=== PATIENT | male | born 1945 | race Caucasian/White ===

== ENCOUNTER → 2020-11-11 12:39 | Outpatient (CLI) | payer OTHER, SELFPAY ==
[2020-11-11 14:09] LABS: Chloride 102 mmol/L (98-107); Potassium 3.5 mmoL/L (3.5-5.1); Sodium 139 mmol/L (136-145)
[2020-11-11 14:12] LABS: Alanine Aminotransferase 81 U/L (12-78); Albumin Level 4.3 g/dl (3.5-5.0); Albumin/Globulin Ratio 1.2 (1.1-1.8); Alkaline Phosphatase 126 U/L (38-126); Anion Gap 12.5 mEq/L (5-15); Aspartate Amino Transferase 89 U/L (17-59); Basophils % 0.2 % (0.1-2.0); Bilirubin,Total 3.3 mg/dl (0.2-1.3); Blood Urea Nitrogen 26 mg/dl (9-20); Carbon Dioxide 28 mmol/L (22.0-30.0); Eosinophils % 0.1 % (0.1-12.0); Estimated Glomerular Filt Rate 82 ml/min (>60); GFR (African American) 100 ML/MIN (>60); Globulin 3.7 g/dL (1.3-3.2); Hematocrit 43.6 % (42.0-52.0); Hemoglobin 14.8 g/dL (14.1-18.0); Lymphocytes # 1.2 K/mm3 (0.7-4.5); Lymphocytes % 16.2 % (10-50); Mean Corpuscular Hemoglobin 28.7 pg (27.0-31.2); Mean Corpuscular Volume 84.5 fl (80-94); Mean Platelet Volume 9.3 fl (7.4-10.4); Monocytes # 0.3 K/mm3 (0.1-1.0); Neutrophils # 5.7 K/mm3 (1.8-7.8); Neutrophils % 79.5 % (37.0-80.0); Platelet Count 122 K/mm3 (142-424); Red Blood Count 5.15 M/mm3 (4.60-6.20); Red Cell Distribution Width 14.2 % (11.5-17.5); White Blood Count 7.2 K/mm3 (4.8-10.8)
[2020-11-11 14:13] LABS: Calcium 9.4 mg/dl (8.4-10.2); Glucose 123 mg/dl (74-100)
[2020-11-12 10:03] LABS: Covid-19 Nasal PCR Sendout P&C POSITIVE
== END ==
PROVIDERS: PCP Nurse Practitioner Family; Visit Provider Nurse Practitioner Family
DX: Z20.822 Contact with and (suspected) exposure to COVID-19 (principal); U07.1 COVID-19; R11.2 Nausea with vomiting, unspecified
CPT/HCPCS: 36415; 80053; 85025; U0004

== ENCOUNTER 2020-11-12 12:42 | Outpatient (CLI) | payer OTHER, SELFPAY ==
[2020-11-12] VITALS (10 sets, daily range): BP systolic 88–128; BP diastolic 66–79; PULSE 68–81; RESP 16–18; TEMP 36.7–36.8; O2SAT 95–97
--- NOTE | 2020-11-12 13:32 | PC.NURSE ---
Checked pt vital signs prior to beginning infusion; pt VS BP 88/66, HR 80, RR 18, temp 98.2, SaO2 96% on RA contacted Dr. John r/t pt BP. Pt walking independently, no dizziness noted, pt denies presence of pain. Pt reports nausea only. Dr. John states okay to start pt infusion, continue to monitor VS, notify him of any issues.
--- NOTE | 2020-11-12 14:40 | PC.NURSE ---
Infusion complete at this time
== END 2020-11-12 13:45 | disposition home or self-care (01) ==
PROVIDERS: PCP Family Medicine; Visit Provider Family Medicine
DX: U07.1 COVID-19 (principal)
CPT/HCPCS: 96365

== ENCOUNTER 2023-04-23 09:12 | Emergency (ER) | payer OTHER, SELFPAY ==
[2023-04-23 09:12] VITALS: BP 124/82; PULSE 68; RESP 19; TEMP 36.7; O2SAT 96; BMI 31.8
[2023-04-23 09:38] LABS: Apearance,Urine Clear (Clear); Color,Urine Yellow (Yellow)
[2023-04-23 09:39] LABS: Bilirubin,Urine Negative (Negative); Blood, Urine 3+ (Negative); Glucose,Urine (UA) Negative (Negative); Ketones,Urine Negative (Negative); Protein,Urine 1+ (Negative); UTC Leukocyte Esterase,Urine 1+ (Negative); UTC Nitrate,Urine Negative (Negative); Urobilinogen,Urine 1 EU/dl (0.2)
--- NOTE | 2023-04-23 09:41 | EXP.UTC ---
Discharge Plan Disposition Patient Disposition: Home, Self-Care Condition: Good Prescriptions Prescriptions: New cefdinir 300 mg capsule 300 mg PO BID Qty: 20 0RF phenazopyridine [Pyridium] 200 mg tablet 200 mg PO Q8H 2 Days Qty: 6 0RF No Action losartan 50 mg tablet 50 mg PO DAILY Referrals Follow up/Referrals: Caitlin Ramon APRN [Primary Care Provider] - See instructions Activity Restrictions/Add. Instructions Additional Instructions/Restrictions: *Increase fluids. Water not Soda or Tea *Start antibiotic immediately and be sure to take as ordered for the FULL length of time although you should start to see improvement over the next 48 hours *Pyridium as needed Remember this medication will turn your urine . This is normal but it will stain what ever it gets on *You should not use Pyridium for more than 48 hours. If so , follow up with your primary physician to review urine culture and ensure that antibiotic is adequate for infection *Be SURE to follow up anytime for new or worsening symptoms with your family doctor. AND in 48 hours for urine culture results with your family doctor, if you do not have a doctor then you may call back to the [facility] for urine culture results and further treatment. We do recommend that you choose and establish care with a Primary Care Physician. ?AND follow up with them ?in 10-14 days to repeat UA to ensure infection is resolved and blood no longer present *Be sure to let your PCP know that we sent urine cultures from the [facility] so they can follow up to ensure that you area the on the correct antibiotic Call your doctor office and make appointment for 48 hours (2 days from today) ?to follow up and get the results of your urine culture and further treatment Clinical Impressions Clinical Impression: UTI (urinary tract infection) Qualifiers: Urinary tract infection type: site unspecified Hematuria presence: with hematuria Qualified Code(s): N39.0 - Urinary tract infection, site not specified Instructions Patient Instructions: Urinary Tract Infection, DI for Urinary Tract Infection (UTI), Cefdinir Discharge ED Provider: Elma Ma [facility] HPI General Stated complaint: Burning w/ urination Mode of Arrival: Ambulatory Source of Information: Patient Limitations: No Limitations Time Seen by Provider: 04/23/23 09:41 Description of Symptoms (Recalled from Triage Doc. by RN): Complaint of burning and frequency with urination x 2 days. HEENT Symptoms (Recalled from RN notes): No Resp Symptoms (Recalled from RN notes): No Skin Symptoms (Recalled from RN notes): No MS Symptoms (Recalled from RN notes): No Functional Status (Recalled from RN notes): wnl History of Present Illness Provider Complaint: Patient states that he thinks he may have a UTI States that he has been having burning with urination and urgency and frequency for the last couple of days and last night he was up and down all night going to the bathroom Denies fever, denies chills, denies back pain States he has a hx of Kidney stones about 40yrs ago but this does not feel like that Related Data Home Medications Medication Instructions Recorded Confirmed losartan 50 mg tablet 50 mg PO DAILY 03/03/21 03/03/21 Previous Rx's Medication Instructions Recorded cefdinir 300 mg capsule 300 mg PO BID #20 caps 04/23/23 phenazopyridine 200 mg tablet 200 mg PO Q8H pain 2 days #6 tabs 04/23/23 (Pyridium) Allergies Allergy/AdvReac Type Severity Reaction Status Date / Time No Known Allergies Allergy Verified 03/03/21 11:44 Worker's Comp Is this a Worker's Comp case?: No [facility] Disclaimer: The information contained in this section may have been updated after the patient was seen, as this information can be updated by other users. Social History Smoking Status: Former smoker alcohol intake: never substance use type: denies use current occupational status: employed Travel in the last 8 wee
[2023-04-23 10:07] VITALS: BP 124/82; PULSE 68; RESP 19; TEMP 36.7; O2SAT 96
== END 2023-04-23 10:10 | disposition home or self-care (01) ==
PROVIDERS: Emergency Provider Nurse Practitioner; PCP Nurse Practitioner Family
DX: N39.0 Urinary tract infection, site not specified (principal); R31.9 Hematuria, unspecified; Z87.442 Personal history of urinary calculi; Z87.891 Personal history of nicotine dependence
CPT/HCPCS: 81003; 87086; 96372; 99204; 99212; G0463; J0696

== ENCOUNTER 2024-01-19 15:03 | Emergency (ER) | payer OTHER, SELFPAY ==
[2024-01-19 15:04] VITALS: BP 112/67; PULSE 75; RESP 16; TEMP 36.7; O2SAT 97; BMI 32.9
[2024-01-19 15:30] VITALS: BP 119/71; PULSE 74; RESP 20; O2SAT 96
--- NOTE | 2024-01-19 15:36 | ECG_ITS ---
APPROVED REPORT Exam: Resting ECG HR:75 bpm ECG Measurements Heart Rate 75 AXES VA 253 P 66 QRSd 114 QRS -13 QT 432 T 58 QTc 460 Conclusion SINUS RHYTHM WITH FIRST DEGREE AV BLOCK MODERATE INTRAVENTRICULAR CONDUCTION DELAY [110+ ms QRS DURATION] NONSPECIFIC ST ELEVATION [0.05+ mV ST ELEVATION] ABNORMAL ECG Electronically signed by : RADHA FAULKNER, 01/19/2024 23:28:03
[2024-01-19 15:43] LABS: Chloride 109 mmol/L (98-107); Sodium 142 mmol/L (136-145)
[2024-01-19 15:46] LABS: Alanine Aminotransferase 37 U/L (12-78); Albumin Level 4.1 g/dl (3.5-5.0); Albumin/Globulin Ratio 1.4 (1.1-1.8); Alkaline Phosphatase 85 U/L (38-126); Aspartate Amino Transferase 54 U/L (17-59); Bilirubin,Total 4.2 mg/dl (0.2-1.3); Blood Urea Nitrogen 30 mg/dl (9-20); Carbon Dioxide 28 mmol/L (22.0-30.0); Creatinine Clearance Estimated 79 mL/min (50-200); Estimated Glomerular Filt Rate 54 ml/min (>60); GFR (African American) 65 ML/MIN (>60); Total Protein,Serum 7.1 g/dl (6.3-8.2)
[2024-01-19 15:47] LABS: Basophils # 0.1 K/mm3 (0-0.2); Basophils % 0.9 % (0.1-2.0); Calcium 9.2 mg/dl (8.4-10.2); Eosinophils # 0.2 K/mm3 (0.0-0.4); Eosinophils % 2.1 % (0.1-12.0); Glucose 109 mg/dl (74-100); Hematocrit 46.7 % (42.0-52.0); Hemoglobin 15.5 g/dL (14.1-18.0); Lymphocytes # 1.9 K/mm3 (0.7-4.5); Lymphocytes % 24.2 % (10-50); Mean Corpuscular HGB Conc 33.1 g/dL (31.8-35.4); Mean Corpuscular Hemoglobin 28.8 pg (27.0-31.2); Mean Corpuscular Volume 86.9 fl (80-94); Mean Platelet Volume 9.1 fl (7.4-10.4); Monocytes # 0.5 K/mm3 (0.1-1.0); Monocytes % 6.4 % (1.7-9.3); Neutrophils # 5.1 K/mm3 (1.8-7.8); Neutrophils % 66.4 % (37.0-80.0); Platelet Count 164 K/mm3 (142-424); Red Blood Count 5.37 M/mm3 (4.60-6.20); Red Cell Distribution Width 14.5 % (11.5-17.5); White Blood Count 7.7 K/mm3 (4.8-10.8)
--- NOTE | 2024-01-19 15:54 | ED_ITS ---
Discharge Plan Disposition Patient Disposition: Home, Self-Care Prescriptions Prescriptions: New potassium chloride 20 mEq tablet extended release 40 meq PO DAILY 2 Days Qty: 4 0RF ondansetron 4 mg tablet,disintegrating 4 mg PO Q8H PRN (Reason: nausea and vomiting) 4 Days Qty: 12 0RF Referrals Follow up/Referrals: Provider,Viviana, [Referring] - See instructions Reyes Freitas MD [Staff Physician] - See instructions Caitlin Ramon APRN [Primary Care Provider] - See instructions Activity Restrictions/Add. Instructions Additional Instructions/Restrictions: At this time it was felt you are safe to be discharged home. If new or worsening symptoms please do not hesitate to return the emergency department. Please take your medications as prescribed and follow-up with your family doctor within 3 days. Please call and schedule appoint with Dr. Freitas for your heart rhythm as you are able. Clinical Impressions Clinical Impression: Acute viral syndrome, Acute hypokalemia, Bigeminy Discharge ED Provider: Demar Bowser General Adult HPI General Chief complaint: Weakness Stated complaint: Vomiting and diarrhea Time Seen by Provider: 01/19/24 15:24 Mode of Arrival: Wheelchair Source of Information: Patient Limitations: No Limitations Description of Symptoms (Recalled from ER Triage Doc. 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 STates that he just feels off balance. History of Present Illness HPI narrative: Patient is a 78-year-old male with no chronic comorbidities who presents emergency department for evaluation of weakness. Patient had nonbloody vomiting and diarrhea since which has been relatively persistent, the vomiting has lessened throughout the course. 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 After the service and he felt globally weak and eased himself to the floor, no trauma. Due to this persistent weakness he presents here for continued evaluation. Related Data Previous Rx's Medication Instructions Recorded ondansetron 4 mg disintegrating 4 mg PO Q8H PRN nausea and 01/19/24 tablet vomiting 4 days #12 tabs potassium chloride 20 mEq 40 meq (2 x 20 mEq) PO DAILY low 01/19/24 tablet,extended release potassium 2 days #4 tabs Allergies Allergy/AdvReac Type Severity Reaction Status Date / Time No Known Allergies Allergy Verified 01/01/24 13:04 [facility] Disclaimer: The information contained in this section may have been updated after the patient was seen, as this information can be updated by other users. Medical History (Updated 01/19/24 @ 17:23 by Demar Bowser MD) Hypertension Surgical History (Updated 12/12/23 @ 10:09 by Flor Colon LPN) H/O hand surgery Family History (Updated 12/12/23 @ 10:09 by Flor Colon LPN) Mother Hypertension Social History Smoking Status: Former smoker alcohol intake: never substance use type: denies use current occupational status: employed Travel in the last 8 weeks: None ROS Obtained: Yes Systems reviewed as appropriate & no additional complaints except as documented Physical Exam General General appearance: alert and in no apparent distress Head Head exam: atraumatic and normocephalic Eye Eye exam: Present PERRL and EOMI ENT ENT exam: Present mucous membranes moist Neck Neck exam: Present normal inspection Chest Chest inspection: Present normal inspection and symmetric chest wall rise Respiratory Respiratory exam: Present normal lung sounds bilaterally; Absent respiratory distress Cardiovascular Cardiovascular exam: Present regular rate and normal rhythm Abdominal Exam Abdominal exam: Present soft; Absent tenderness Extremities Exam Extremities exam: Present normal inspection Neurological Exam Neurological exam: Present alert and CN II-XII intact; Absent motor sensory deficit Psychiatric Psychiatric exam: Present normal affect Skin Skin exam: Present warm and dry Medical Decision Making Miah Inquiry Pt receiving controlled substance: No Vital Signs: 01/19/24 15:04 01/19/24 15:30 01/19/24 16:00 Temperature 98.1 F Temperature Source Oral Pulse Rate 74 52 L Pulse Rate [Left Radial] 75 Respiratory Rate 16 20 Blood Pressure 119/71 128/70 Blood Pressure [Right Arm] 112/67 Blood Pressure Mean 84 Blood Pressure Mean [Right Arm] 82 Blood Pressure Source [Right Arm] Automatic Cuff Blood Pressure Position [Right Arm] Sitting 02 Sat by Pulse Oximetry 97 96 96 Oxygen Delivery Method Room Air Room Air 01/19/24 16:30 Temperature Temperature Source Pulse Rate Pulse Rate [Left Radial] Respiratory Rate 15 Blood Pressure 131/57 L Blood Pressure [Right Arm] Blood Pressure Mean Blood Pressure Mean [Right Arm] Blood Pressure Source [Right Arm] Blood Pressure Position [Right Arm] 02 Sat by Pulse Oximetry Oxygen Delivery Method Lab Data Lab Results 01/19/24 15:17: WBC 7.7, RBC 5.37, Hgb 15.5, Hct 46.7, MCV 86.9, MCH 28.8, MCHC 33.1, RDW 14.5, Plt Count 164, MPV 9.1, Neut % (Auto) 66.4, Lymph % (Auto) 24.2, [place] % (Auto) 6.4, Eos % (Auto) 2.1, Baso % (Auto) 0.9, Neut # (Auto) 5.1, Lymph # (Auto) 1.9, [place] # (Auto) 0.5, Eos # (Auto) 0.2, Baso # (Auto) 0.1, Sodium 142, Potassium 3.0 L, Chloride 109 H, Carbon Dioxide 28, Anion Gap 8.0, BUN 30 H , Creatinine 1.30 H, Estimated Creat Clear 79, Estimated GFR 54 L, Est GFR ( Amer) 65, Glucose 109 H, Calcium 9.2, Magnesium 2.4 H, Total Bilirubin 4.2 H, AST 54, ALT 37, Alkaline Phosphatase 85, Troponin I 0.01, Total Protein 7.1, Albumin 4.1, Globulin 3.0, Albumin/Globulin Ratio 1.4, Lipase 121 01/19/24 15:17 01/19/24 15:17 Orders (Tests/Meds): ED MEDICATIONS Generic Name Dose Route Start Last Admin Trade Name Freq PRN Reason Stop Dose Admin Sodium Chloride 10 ml 01/19/24 15:32 Sodium Chloride 0.9% 10ml Flush Syringe IV 02/18/24 15:31 NEEDED PRN Maintain IV Site Discontinued Medications Generic Name Dose Route Start Last Admin Trade Name Freq PRN Reason Stop Dose Admin Lactated Ringer's 1,000 mls @ 999 mls/hr 01/19/24 15:53 01/19/24 16:03 Lactated Ringer's 1000 Ml Bag IV 01/19/24 16:53 999 mls/hr .Q1H1M ONE Administration Ondansetron HCl 4 mg 01/19/24 15:53 01/19/24 16:06 Ondansetron 4mg/2ml Vial IV 01/19/24 15:54 4 mg ONCE ONE Administration Potassium Chloride 40 meq 01/19/24 15:53 01/19/24 16:06 Potassium Chloride 20meq Tab PO 01/19/24 15:54 40 meq ONCE ONE Administration ORDERS Category Date Time Status Complete Blood Count Auto Diff Stat Lab 01/19/24 15:17 Completed Comprehensive Metabolic Panel Stat Lab 01/19/24 15:17 Completed Lipase Stat Lab 01/19/24 15:17 Completed MG [Magnesium] Stat Lab 01/19/24 15:17 Completed Rapid PCR Covid and Flu A/B Stat Lab 01/19/24 15:46 Ordered Troponin I Q3H Lab 01/19/24 18:45 Ordered Troponin I Q3H Lab 01/19/24 21:45 Ordered Troponin I Stat Lab 01/19/24 15:17 Completed ECG Data Tracing #1: Independently interpreted by me, rate 75, rhythm is regular, no ST elevation in anatomical contiguous leads, QTc 460. Tracing #2: Independently interpreted by me, rate is 77, rhythm is irregularly irregular, bigeminy. No ST elevation in anatomical contiguous leads. QTc 450. HEART Score History (anamnesis): Slightly suspicious ECG: Normal Age: >65 years Risk factors: No known risk factors Troponin: </= normal limit HEART Score: 2 Medical Decision Narrative: In summary patient is a 78-year-old male with past medical history described above presents emergency department for evaluation of weakness. Patient is hemodynamically stable nontoxic-appearing upon arrival, afebrile. Differential diagnosis includes electrolyte abnormality, viral syndrome, pancreatitis, atypical ACS, among others. Workup will be conducted with hematologic labs, EKG, single troponin, viral swab. Initial interventions include crystalloid bolus and Zofran. Initial workup reviewed by me, hematologic labs remarkable for elevated creatinine without unknown baseline, hypokalemia in the setting of vomiting. Upon repeat evaluation patient had bigeminy on EKG. The case was discussed with Dr. Freitas who agrees that this is a stable rhythm and is of no current consequence. Initial troponin normal and patient has no chest pain. Potassium was repleted by mouth 40 mill equivalents and patient will be discharged with a prescription for potassium over the next 2 days as well as Zofran and will follow-up with his family doctor in 72 hours and we referred to Dr. Freitas on outpatient basis. Patient was given return precautions. Critical Care Critical Care Time Critical Care Time: No
[2024-01-19 15:58] LABS: Lipase 121 U/L (23-300)
[2024-01-19 15:59] LABS: Troponin I 0.01 ng/ml (0.00-0.034)
[2024-01-19 16:00] VITALS: BP 128/70; PULSE 52; O2SAT 96
[2024-01-19] MEDS: LACTATED RINGERS 1000ML 1,000 ML 999 ML IV (16:03)
[2024-01-19] MEDS: POTASSIUM CHLORIDE 20MEQ TAB 40 MEQ PO (16:06)
[2024-01-19] MEDS: ONDANSETRON 4MG/2ML VIAL 4 MG IV (16:06)
--- NOTE | 2024-01-19 16:10 | PC.NURSE ---
Addendum entered by Michael Dawn RN 01/19/24 16:11: aware. Original Note: pt refused covid/flu swab.
--- NOTE | 2024-01-19 16:22 | ECG_ITS ---
APPROVED REPORT Exam: Resting ECG HR:76 bpm ECG Measurements Heart Rate 76 AXES NH 264 P 72 QRSd 115 QRS 9 QT 419 T 36 QTc 450 Conclusion SINUS RHYTHM WITH FIRST DEGREE AV BLOCK WITH FREQUENT VENTRICULAR PREMATURE COMPLEXES IN A BIGEMINAL PATTERN MODERATE INTRAVENTRICULAR CONDUCTION DELAY [110+ ms QRS DURATION] NONSPECIFIC T-WAVE ABNORMALITY ABNORMAL ECG Electronically signed by : RADHA FAULKNER, 01/19/2024 23:27:50
--- NOTE | 2024-01-19 16:28 | PC.NURSE ---
PAged at this time.
--- NOTE | 2024-01-19 16:29 | PC.NURSE ---
Dr Bowser speaking to Dr Freitas
[2024-01-19 16:30] VITALS: BP 131/57; RESP 15
[2024-01-19 16:40] LABS: Magnesium 2.4 mg/dl (1.6-2.3)
[2024-01-19 17:00] VITALS: BP 131/76; PULSE 77; RESP 18; O2SAT 97
[2024-01-19 17:40] VITALS: BP 131/76; PULSE 91; RESP 18; TEMP 36.7; O2SAT 96
== END 2024-01-19 17:42 | disposition home or self-care (01) ==
PROVIDERS: Emergency Provider Emergency Medicine; PCP Nurse Practitioner Family
DX: E87.6 Hypokalemia (principal); R11.2 Nausea with vomiting, unspecified; R19.7 Diarrhea, unspecified; R53.1 Weakness; I44.0 Atrioventricular block, first degree; I49.8 Other specified cardiac arrhythmias; B34.9 Viral infection, unspecified; I10 Essential (primary) hypertension; Z87.891 Personal history of nicotine dependence
CPT/HCPCS: 80053; 83690; 83735; 84484; 85025; 93005; 96361; 96374; 99284; J2405

== ENCOUNTER 2024-01-20 11:40 | Outpatient (CLI) | payer OTHER, SELFPAY ==
--- NOTE | 2024-01-20 11:50 | CT_ITS ---
FINAL REPORT TECHNIQUE: Multiple axial CT sections were performed from the foramen magnum to the vertex. Coronal reformatted images were also obtained. Precontrast and postcontrast injection images were obtained. This study was performed with technique to keep radiation doses as low as reasonably achievable, (ALARA). Individualized dose reduction techniques using automated exposure control or adjustment of mA and/or kV according to the patient size were employed. 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 Mild chronic changes are present. The ventricles are normal in size. There is no evidence of hemorrhage. No masses are identified. No extra-axial fluid collection is seen. There is mucosal thickening in multiple sinuses. A small fluid level is seen in the left maxillary sinus consistent with sinusitis. No osseous abnormality is seen on the bone window images. Postcontrast images demonstrate no abnormal enhancement. IMPRESSION: Left frontal encephalomalacia. No acute intracranial abnormality. Sinusitis. Reviewed, Interpreted and Dictated by Cliff Lorenzo III, MD Transcribed by Aditi Zambrano Authenticated and . [facility]
[2024-01-20] MEDS: IOPAMIDOL-300 (61%) 100ML VIAL 100 ML IV (12:36)
== END 2024-01-20 23:59 ==
LOC: RAD 11:40
PROVIDERS: PCP Nurse Practitioner Family; Visit Provider Physician Assistant
DX: I69.361 Other paralytic syndrome following cerebral infarction affecting right dominant side (principal); R55 Syncope and collapse; R94.31 Abnormal electrocardiogram [ECG] [EKG]; I49.8 Other specified cardiac arrhythmias; E87.6 Hypokalemia
CPT/HCPCS: 70470; 93225; Q9967

== ENCOUNTER 2024-01-22 12:49 | Outpatient (CLI) | payer MEDICARE, SELFPAY ==
[2024-01-22 14:25] LABS: Chloride 107 mmol/L (98-107); Potassium 3.9 mmoL/L (3.5-5.1); Sodium 140 mmol/L (136-145)
[2024-01-22 14:27] LABS: Blood Urea Nitrogen 9 mg/dl (9-20); Estimated Glomerular Filt Rate 94 ml/min (>60); GFR (African American) 113 ML/MIN (>60)
[2024-01-22 14:28] LABS: Alanine Aminotransferase 57 U/L (12-78); Albumin Level 3.9 g/dl (3.5-5.0); Albumin/Globulin Ratio 1.4 (1.1-1.8); Alkaline Phosphatase 114 U/L (38-126); Anion Gap 9.9 mEq/L (5-15); Aspartate Amino Transferase 53 U/L (17-59); Bilirubin,Total 2.6 mg/dl (0.2-1.3); Calcium 9.1 mg/dl (8.4-10.2); Carbon Dioxide 27 mmol/L (22.0-30.0); Globulin 2.7 g/dL (1.3-3.2); Glucose 95 mg/dl (74-100); Total Protein,Serum 6.6 g/dl (6.3-8.2)
== END 2024-01-22 23:59 ==
LOC: LAB.DROPOF 12:50
PROVIDERS: PCP Nurse Practitioner Family; Visit Provider Nurse Practitioner Family
DX: E87.6 Hypokalemia (principal)
CPT/HCPCS: 80053

== ENCOUNTER 2024-01-22 13:28 | Outpatient (CLI) | payer MEDICARE, SELFPAY | END 2024-01-22 23:59 | LOC: RT 13:29 | PROVIDERS: PCP Nurse Practitioner Family; Visit Provider Physician Assistant | DX: R55 Syncope and collapse (principal); R94.31 Abnormal electrocardiogram [ECG] [EKG]; I69.361 Other paralytic syndrome following cerebral infarction affecting right dominant side | CPT/HCPCS: 80053; 93270 ==

== ENCOUNTER 2024-01-31 08:00 | Outpatient (CLI) | payer MEDICARE, SELFPAY ==
[2024-01-31 15:55] LABS: Alanine Aminotransferase 25 U/L (12-78); Albumin Level 4.2 g/dl (3.5-5.0); Albumin/Globulin Ratio 1.6 (1.1-1.8); Alkaline Phosphatase 94 U/L (38-126); Anion Gap 12.6 mEq/L (5-15); Aspartate Amino Transferase 35 U/L (17-59); Bilirubin,Total 2.5 mg/dl (0.2-1.3); Blood Urea Nitrogen 10 mg/dl (9-20); Calcium 9.2 mg/dl (8.4-10.2); Carbon Dioxide 28 mmol/L (22.0-30.0); Chloride 104 mmol/L (98-107); Chol/HDL Ratio 4.2 (1-3.5); Cholesterol 139 mg/dl (140-200); Estimated Glomerular Filt Rate 82 ml/min (>60); GFR (African American) 99 ML/MIN (>60); Globulin 2.7 g/dL (1.3-3.2); Glucose 86 mg/dl (74-100); HDL Cholesterol 33 mg/dl (40-60); Potassium 4.6 mmoL/L (3.5-5.1); Sodium 140 mmol/L (136-145); Total Protein,Serum 6.9 g/dl (6.3-8.2); Triglycerides 107 mg/dl (30-150); VLDL Cholesterol 21 mg/dL (0-40)
[2024-01-31 16:07] LABS: Direct LDL Cholesterol 75.95 mg/dL (100-129)
== END 2024-01-31 23:59 | disposition home or self-care (01) ==
LOC: LAB.DROPOF 02-02 08:01
PROVIDERS: PCP Nurse Practitioner Family; Visit Provider Nurse Practitioner Family
DX: E87.6 Hypokalemia (principal); E78.5 Hyperlipidemia, unspecified; Z79.899 Other long term (current) drug therapy
CPT/HCPCS: 80053; 80061

== ENCOUNTER 2024-02-20 11:07 | Outpatient (CLI) | payer MEDICARE, SELFPAY ==
--- NOTE | 2024-02-20 11:07 | NM_ITS ---
APPROVED REPORT Exam: Nuclear Stress Test Indication: HYPERLIPIDEMIA, FM HX Patient Location: Outpatient Stress Tech: Shena Constantino [place] Tech:ASHLEY Dillard RT(R)(N) Ht: 6 ft 2 in Wt: 250 lbs HR: 69 bpm BP: 154/73 mmHg BSA: 2.39 m2 Rhythm: NSR TID: 1.09 BMI: 32.0 History: HYPERLIPIDEMIA, FM HX Procedure: Patient received 0.4 mg of intravenous Lexiscan, resting heart rate 69 bpm, resting blood pressure 154/73 mmHg, with Lexiscan maximum heart rate achieved was 87 bpm which is % of the maximum predicted heart rate and blood pressure was 154/73 mmHg. With Lexiscan, patient denied any complaint of chest pain. Cardiac Stress and Resting SPECT Images: Cardiac Stress and Resting SPECT images were obtained using technetium 99m Myoview 32.1 mCi stress and 10.56 mCi at rest. Resting and stress imaging in supine and prone positions demonstrate a medium-sized, moderate, predominantly fixed perfusion defect in the basal to mid inferior LV wall. Gated imaging demonstrates severely reduced global LV systolic function. There is near akinesis of the basal inferior LV wall. LVEF is calculated at 24%. Of note, this LVEF may be inaccurate in the setting of frequent PVCs during stress testing. Conclusion: Medium-sized, moderate, predominantly fixed perfusion defect in the basal to mid inferior LV wall. Gated imaging demonstrates severely reduced global LV systolic function. There is near akinesis of the basal inferior LV wall. LVEF is calculated at 24%. Of note, this LVEF may be inaccurate in the setting of frequent PVCs during stress testing. Correlation of LVEF with new or recent TTE is recommended. Electronically signed by : Danelle Pathak MD 02/23/2024 19:46:03
[2024-02-20] MEDS: ISOTOPE MYOVIEW (PER STUDY) 1 DOSE IV (13:39)
[2024-02-20] MEDS: REGADENOSON 0.4MG/5ML SYRINGE 0.400000000000000022 MG IV (13:39)
[2024-02-20] MEDS: SODIUM CHLORIDE 0.9% 10ML SYR (RAD ONLY) 10 ML IV ×2 (13:39)
--- NOTE | 2024-02-20 14:14 | CA_ITS ---
APPROVED REPORT Exam: Pharmacologic Technologist: Shena Smallwood, Ht: 6 ft 2 in Wt: 250 lbs BSA: 2.39 m2 HR: 65 bpm BP: 154/73 mmHg Rhythm: NSR Indications: Syncope Medical History Medications: Aspirin,,,,, Metoprolol,,,,, Crestor,,,,, ONdansetron,,,,, Potassium,,,,, Stress Test Details Test: LEXISCAN Reason for pharmacologic stress test: physical limitation. HR Resting HR: 69 bpm Max Heart Rate (APMHR): 143 bpm Max HR Achieved: 87 bpm Target HR (85% APMHR): 122 bpm % of APMHR: 61 Recovery HR: 78 bpm BP Resting BP: 154/73 mmHg Max BP: 154/73 mmHg Recovery BP: 140.0/81.0 mmHg ECG Resting ECG: NSR, frequent PVCs Stress ECG: No significant ST changes Arrhythmia: Frequent PVCs Clinical Exercise duration: 04:01 min Highest Stage Achieved: Stress ECG Conclusion Symptoms: very brief SOA. No CP. Arrhythmias/Ectopy: Frequent PVCs, one ventricular couplet. ST-T Changes: No significant changes. Conclusion: Frequent PVCs present at baseline and after Lexiscan administration. No ST changes after Lexiscan stress. Myoview images reported separately. Test Summary REST 05:20 . . 69 . 154/ 73 . . Stage 1 01:00 . . 68 . . . . Stage 2 01:00 . . 79 . . . . Stage 3 01:00 . . 78 . 147/ 72 . . Stage 4 01:00 . . 76 . 151/ 77 . . Stage 4 01:01 . . 72 . 151/ 77 . Stop exercise at 04:01 RECOVERY 01:00 . . 77 . 145/ 83 . . RECOVERY 02:00 . . 76 . 145/ 83 . . RECOVERY 03:00 . . 70 . 143/ 78 . . RECOVERY 04:00 . . 74 . 143/ 78 . . RECOVERY 04:28 . . 75 . 140/ 81 . . Electronically signed by : Danelle Pathak MD 02/23/2024 19:42:54
== END 2024-02-20 23:59 | disposition home or self-care (01) ==
PROVIDERS: PCP Nurse Practitioner Family; Visit Provider Physician Assistant
DX: R55 Syncope and collapse (principal); I69.361 Other paralytic syndrome following cerebral infarction affecting right dominant side; I63.9 Cerebral infarction, unspecified; R94.31 Abnormal electrocardiogram [ECG] [EKG]; I49.8 Other specified cardiac arrhythmias; E87.6 Hypokalemia
CPT/HCPCS: 78452; 93017; 93018; A9502; J2785

== ENCOUNTER 2024-07-31 17:50 | Emergency (ER) | payer MEDICARE, SELFPAY ==
[2024-07-31 17:52] VITALS: BP 149/88; PULSE 76; RESP 20; TEMP 36.6; O2SAT 94; BMI 32.1
--- NOTE | 2024-07-31 18:29 | XR_ITS ---
PROCEDURE INFORMATION: Exam: XR Chest Exam date and time: 07/31/2024 7:13 PM Age: 79 years old Clinical indication: Wheezing; Additional info: Isolated R sided wheezes, productive cough TECHNIQUE: Imaging protocol: Radiologic exam of the chest. Views: 2 views. Total images: 2 COMPARISON: No relevant prior studies available. FINDINGS: Lungs: Unremarkable. No consolidation. No pulmonary vascular congestion or edema. Pleural spaces: Unremarkable. No pleural effusion. No pneumothorax. Heart/Mediastinum: Unremarkable. No cardiomegaly. No mediastinal widening or hilar enlargement. Vasculature: Tortuous and mildly atherosclerotic thoracic aorta. Bones/joints: Mild degenerative changes thoracic spine and bilateral AC joints. IMPRESSION: No radiographically acute cardiopulmonary process.
[2024-07-31] MEDS: IPRATROPIUM/ALBUTEROL 3 ML NEB 9 ML IH (18:52)
[2024-07-31 19:07] VITALS: BP 160/99; PULSE 86; O2SAT 95
--- NOTE | 2024-07-31 19:20 | PC.NURSE ---
let radiology know that pt was done with breathing treatment and is ready to go to X-ray at this time
--- NOTE | 2024-07-31 19:46 | ED_ITS ---
Discharge Plan Disposition Patient Disposition: Home, Self-Care Prescriptions Prescriptions: New amoxicillin-pot clavulanate 875-125 mg tablet 1 tab PO BID 5 Days Qty: 10 0RF azithromycin 500 mg tablet 500 mg PO DAILY 2 Days Qty: 2 0RF Rx Instructions: start on day 2 of therapy No Action aspirin 81 mg tablet 81 mg PO DAILY metoprolol succinate 50 mg tablet extended release 24 hr 50 mg PO DAILY Qty: 30 2RF rosuvastatin 10 mg tablet 10 mg PO DAILY 90 Days Qty: 90 1RF ondansetron 4 mg tablet,disintegrating 4 mg PO Q8H PRN (Reason: nausea and vomiting) 4 Days Qty: 12 0RF Referrals Follow up/Referrals: Caitlin Ramon APRN [Primary Care Provider] - See instructions Activity Restrictions/Add. Instructions Additional Instructions/Restrictions: Call your family doctor to establish care for this visit to the emergency department and schedule follow-up within 48 hours to ensure improvement. If you have any worsening of your condition or any other concerning signs or symptoms, return to the emergency department or your primary care doctor for further evaluation. Augmentin twice daily for 5 days, azithromycin once daily for the next 2 days. Clinical Impressions Clinical Impression: Pneumonia Qualifiers: Pneumonia type: due to unspecified organism Laterality: right Lung location: lower lobe of lung Qualified Code(s): J18.9 - Pneumonia, unspecified organism Print Language Print Language: Mongolian Discharge ED Provider: See [facility] General Adult HPI General Chief complaint: Upper Respiratory Infection Stated complaint: chest,lung congestion productive yellow and green Time Seen by Provider: 07/31/24 17:58 Mode of Arrival: Ambulatory Source of Information: Patient Limitations: No Limitations Description of Symptoms (Recalled from ER Triage Doc. by RN): pt presents to the er for drainage that started last night, states he is coughing up yellow sputum, took 1 dose of mucinex today, also reports a sore throat History of Present Illness HPI narrative: Please note that above description of symptoms, in this electronic medical record under categorization of recalled from ER triage doctor by RN are reflective of an initial nursing assessment, however, is not reflective of my full history and physical exam that was personally taken and clarified. Consequentially, this preceding description of symptoms, which may include the patient's categorized chief complaint in the EMR, do not reflect my personal clinical impression, and the ultimate description of history of present illness and patient stated complaints should be deferred to this section of the note. Unless stated otherwise or congruent with this section of the note, additional signs, symptoms, or incongruence should be interpreted as inaccurate with my clinical impression. Related Data Home Medications ?Medication ?Instructions ?Recorded ?Confirmed aspirin 81 mg tablet 81 mg PO DAILY 01/22/24 07/31/24 Previous Rx's ?Medication ?Instructions ?Recorded ondansetron 4 mg disintegrating 4 mg PO Q8H PRN nausea and 01/19/24 tablet vomiting 4 days #12 tabs metoprolol succinate 50 mg 50 mg PO DAILY #30 tabs 01/24/24 tablet,extended release 24 hr rosuvastatin 10 mg tablet 10 mg PO DAILY 90 days #90 tabs 02/05/24 amoxicillin 875 mg-potassium 1 tab PO BID 5 days #10 tabs 07/31/24 clavulanate 125 mg tablet azithromycin 500 mg tablet 500 mg PO DAILY 2 days #2 tabs 07/31/24 Allergies Allergy/AdvReac Type Severity Reaction Status Date / Time No Known Allergies Allergy Verified 07/31/24 18:11 PFSH [facility] Disclaimer: The information contained in this section may have been updated after the patient was seen, as this information can be updated by other users. 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 Abnormal electrocardiogram [ECG] [EKG] Hypertension Surgical History H/O hand surgery left hand 1995 Family History Mother Hypertension Social History Smoking Status: Never smoker alcohol intake: never substance use type: denies use current occupational status: employed Travel in the last 8 weeks: None Other Medical History Have you received the Pneumonia Vaccine: Yes ROS Obtained: Yes All systems reviewed & no additional complaints except as documented Physical Exam General General appearance: alert Head Head exam: atraumatic and normocephalic Eye Eye exam: Present normal appearance, PERRL and EOMI Neck Neck exam: Present normal inspection, full ROM and trachea midline Respiratory Respiratory exam: Absent respiratory distress, wheezes, stridor, accessory muscle use or prolonged expiratory phase Cardiovascular Cardiovascular exam: Present other (Pulses equal symmetric in upper and lower extremities) Abdominal Exam Abdominal exam: Present soft; Absent distention, tenderness or pulsatile mass Extremities Exam Extremities exam: Absent edema Neurological Exam Neurological exam: Present alert, oriented X3 and CN II-XII intact; Absent motor sensory deficit Skin Skin exam: Present warm and dry; Absent diaphoresis or erythema Medical Decision Making Medical Records Medical records reviewed: Yes I reviewed the patient's medical records. Screening: Per USPSTF and CDC recommendations, given the prevalence of disease in our region, it is our hospital?s policy to screen for HIV and viral Hepatitis for all patients aged 18 and over and those with ongoing risk factors. Miah Inquiry Pt receiving controlled substance: No Miah was queried for this patient: No Vital Signs: 07/31/24 17:52 07/31/24 19:07 Temperature 97.9 F Temperature Source Oral Pulse Rate 86 Pulse Rate [Left Radial] 76 Respiratory Rate 20 Blood Pressure 160/99 H Blood Pressure [Right Arm] 149/88 H Blood Pressure Mean [Right Arm] 108 Blood Pressure Source [Right Arm] Automatic Cuff Blood Pressure Position [Right Arm] Sitting 02 Sat by Pulse Oximetry 94 L 95 Oxygen Delivery Method Room Air Room Air Orders (Tests/Meds): ED MEDICATIONS Discontinued Medications Generic Name Dose Route Start Last Admin Trade Name Freq PRN Reason Stop Dose Admin Albuterol/Ipratropium 9 ml 07/31/24 18:29 07/31/24 18:52 Ipratropium/Albuterol 3 Ml Neb IH 07/31/24 18:30 9 ml ONCE ONE Administration ORDERS Category Date Time Status CXR 2 view (NOT portable) [XR chest 2V] Stat Exams 07/31/24 18:29 Completed Medical Decision Narrative: 79-year-old male with no medical history presenting with productive cough. Patient states that started having cough last night, 07/30 in the PM. Was initially nonproductive. Productive today, 07/31. Producing greenish-brownish sputum. Denies any other systemic signs or symptoms. No chest pain, nausea or vomiting etc. Pneumonia vaccine is up-to-date. No PND, orthopnea, shortness of breath, or any other symptoms. History was obtained via conversation with patient. On arrival, patient hemodynamically stable, alert, oriented x4, appropriate, GCS 15, moving all extremities spontaneously, pupils equal and reactive to light. Full physical exam performed and significant for very well- appearing male who is in no acute distress. Intermittently coughing, does not appear to be bringing anything up. Isolated inspiratory wheezes on the right side. Left side clear to auscultation. Cardiac exam within normal limits. No lower extremity edema.. Differential includes bronchitis, pneumonia, among others. Placed on continuous cardiac monitoring and pulse oximetry with initial blood pressure 149/88, pulse 76, oxygen saturation 94% on room air chest after ambulating. On reevaluation after nebs, patient still has wheezing, however wheezing is isolated to right lateral/inferior lung albrecht consistent with x- ray. Independent interpretation of x-ray with hazy streaking right lower lung albrecht with positive spine sign posteriorly on lateral film concerning for developing right lower lobe pneumonia. Patient given amoxicillin and azithromycin. Because patient at baseline without signs or symptoms of clinical decompensation, deemed appropriate for discharge. Results were relayed to patient who voiced understanding and were agreeable to outpatient management and follow up. I discussed my clinical impression with patient and answered all questions. At this time, the evidence for any other entities in the differential is insufficient to warrant any further testing or ED observation. This was explained as well. Advisory was given that persistent or worsening symptoms require further evaluation. I confirmed the understanding of this discussion. Inspector Glass Or Mirror disclaimer Much of this encounter note is an electronic able bodied tankerman spoken language to printed text. Electronic able bodied tankerman of the spoken language may permit errors. Although I have reviewed the note, some errors may still exist. Critical Care Critical Care Time Critical Care Time: No
[2024-07-31 20:22] VITALS: BP 147/86; PULSE 105; RESP 16; TEMP 36.8; O2SAT 95
[2024-07-31] MEDS: AMOXICILLIN/CLAVULANATE POTASSIUM 875/125MG TABLET 1 EACH PO (20:27)
[2024-07-31] MEDS: AZITHROMYCIN 250MG TABLET 500 MG PO (20:34)
== END 2024-07-31 20:37 | disposition home or self-care (01) ==
PROVIDERS: Emergency Provider Emergency Medicine; PCP Nurse Practitioner Family
DX: J18.9 Pneumonia, unspecified organism (principal); R05.9 Cough, unspecified; R09.89 Other specified symptoms and signs involving the circulatory and respiratory systems; J02.9 Acute pharyngitis, unspecified; R09.82 Postnasal drip; R09.3 Abnormal sputum
CPT/HCPCS: 71046; 99283; J7620

== ENCOUNTER 2024-10-19 09:31 | Outpatient (CLI) | payer MEDICARE, SELFPAY ==
--- NOTE | 2024-10-19 09:49 | MR_ITS ---
APPROVED REPORT [employer]: CLINICAL INDICATION PVCs, HFrEF TECHNIQUE Image Acquisition: Cardiac magnetic resonance (CMR) was performed on Siemens Espree MRI 1.5T scanner. Software platform sequences were performed using the Siemens Votigo MR B19 platform. A set of three-plane, low-resolution, large yjyrr-ro-actl localizers were initially acquired. Then axial, coronal, sagittal TrueFISP, as well as axial HASTE images, were obtained. These were followed by gated TrueFISP breathold cinematic sequences obtained in the short axis with 8 mm slices and 2 mm gaps, 2-chamber (vertical long axis), 3-chamber, 4-chamber (horizontal long axis). A bolus of contrast was injected intravenously with first-pass sequences obtained in the short axis and four-chamber planes. After approximately 10 minutes, a TI senior consulting manager sequence was performed to determine the optimal TI time. Using the optimized TI time, delayed contrast enhancement segmented inversion???recovery TurboFLASH sequences were obtained in the short axis, 2-chamber, 3-chamber, and 4-chamber projections. 2D-velocity phase mapping was performed. Functional parameters were calculated by offline analysis on an independent workstation ([employer], [employer]). Contrast: ProHance??? (Gadoteridol) FINDINGS MORPHOLOGY AND FUNCTION Left ventricle: The left ventricle is moderately dilated. The indexed left ventricular end-diastolic volume (LVEDVi) is 99 ml/m2 (reference range 57-84 ml/m2 in males, 56-76 ml/m2 in females). Normal left ventricular systolic function is present. There is normal left ventricular wall thickness. The septal LV wall is asynchronous. LVEF is calculated at 37.7% (reference range 57-77%). Right ventricle: The right ventricle is mildly dilated. The indexed right ventricular end-diastolic volume (RVEDVi) is 82 ml/m2 (reference range 61-80 ml/m2 in males, 48-78ml/m2 in females). Normal right ventricular systolic function is present. RVEF is calculated at 42.5% (reference range 52-72% in males, 51-71% in females). Atria: The left atrium is normal in size. The maximum indexed left atrial volume is 31 ml/m2 (reference range 26-52 ml/m2 in males, 27-53 ml/m2 in females). The right atrium is normal in size. The maximum indexed right atrial volume is 42 ml/m2 (reference range 18-30 ml/m2). Aorta: The diameter of the aortic annulus is normal, measuring 27 mm (coronal view reference range 21-30 mm in males, 19-27 mm in females). The diameter of the aortic sinus is normal, measuring 38 mm (coronal view reference range 25-42 mm in males, 24-36 mm in females). The diameter of the sinotubular junction is normal, measuring 32 mm (coronal view reference range 18-32 mm in males, 18-28 mm in females). The ascending aorta is mildly dilated, measuring 39 mm in diameter. Main pulmonary artery: The main pulmonary artery diameter is normal. Pericardium: The pericardial thickness is normal. The pericardial thickness measures 3.0 mm (normal < 4.0 mm). There is no pericardial effusion. VALVES The valvular morphologies in the visualized sequences appear normal. There is no significant valvular stenosis or regurgitation of the mitral, aortic, tricuspid, or pulmonic valve noted visually. Systolic anterior motion of the mitral valve is not visualized. Ratio of pulmonary to systemic flow, Qp:Qs ratio = 0.9 (normal < or = 1.2, hemodynamically significant shunt > 1.5), demonstrating no evidence of hemodynamically significant shunt. TISSUE CHARACTERIZATION Resting Perfusion: Normal myocardial blood flow at rest. No evidence of resting hypoperfusion. Myocardial Fibrosis and/or edema: No evidence of late gadolinium enhancement is noted, consistent with absence of myocardial scarring, infarction, or necrosis. T2-weighted imaging demonstrates no evidence of myocardial edema or inflammation. OTHER No other significant findings are noted. However, this exam is focused on the cardiac structure and function. IMPRESSION Technically difficult imaging due to frequent ectopy at the time of image acquisition. Moderately dilated LV with moderate reduction in LV systolic function. LVEDVi= 99 ml/m2 and LVEF= 37.7%. Asynchronous septum. Mildly dilated RV with mild reduction in RV systolic function. RVEDVi= 82 ml/m2 and RVEF= 42.5%. RA enlargement. No CMR evidence of myocardial scarring, infarction, or necrosis. No evidence of myocardial edema or inflammation. Perfusion analysis demonstrates normal blood flow at rest with no evidence of resting hypoperfusion. Ratio of pulmonary to systemic flow, Qp:Qs ratio = 0.9 (normal < or = 1.2, hemodynamically significant shunt > 1.5), demonstrating no evidence of hemodynamically significant shunt. Mildly dilated ascending aorta, measuring 39 mm in diameter. The above findings demonstrate biventricular dilation with reduction in biventricular systolic function (LVEF 37.7%). The absence of LGE is suggestive of non-ischemic, dilated cardiomyopathy with no evidence of infiltrative disease, scarring, necrosis, or active inflammation. COMPARISON None CRITICAL RESULT None COMMUNICATION Per this written report The findings of this cardiac MR were reviewed, reported, and signed by Peter Pathak MD (Disability Hearing Officer). Conclusion Electronically signed by : Danelle Pathak MD 11/22/2024 19:02:26
[2024-10-19 10:06] LABS: Blood Urea Nitrogen 13 mg/dl (9-20); Estimated Glomerular Filt Rate 93 ml/min (>60); GFR (African American) 113 ML/MIN (>60)
[2024-10-19] MEDS: GADOTERIDOL INJ 10ML SYRINGE 4 ML IV (12:17)
[2024-10-19] MEDS: 0.9 % SODIUM CHLORIDE 50 ML VIAL IV (12:17)
[2024-10-19] MEDS: GADOTERIDOL INJ 20ML SYRINGE 20 ML IV (12:17)
[2024-10-19] MEDS: SODIUM CHLORIDE 0.9% 10ML SYR (RAD ONLY) 10 ML IV (12:17)
== END 2024-10-19 23:59 | disposition home or self-care (01) ==
LOC: RAD 09:32
PROVIDERS: PCP Nurse Practitioner Family; Visit Provider Internal Medicine Interventional Cardiology
DX: I42.8 Other cardiomyopathies (principal); I47.20 Ventricular tachycardia, unspecified
CPT/HCPCS: 36415; 75561; 82565; 84520; A9576

== ENCOUNTER 2024-11-03 12:15 | Outpatient (CLI) | payer MEDICARE, SELFPAY ==
[2024-11-03 13:17] LABS: Albumin Level 4.3 g/dl (3.5-5.0)
[2024-11-03 13:20] LABS: Alanine Aminotransferase 25 U/L (12-78); Alkaline Phosphatase 93 U/L (38-126); Aspartate Amino Transferase 33 U/L (17-59); Bilirubin,Direct 0.4 mg/dl (0.0-0.4); Bilirubin,Total 3.4 mg/dl (0.2-1.3); Chol/HDL Ratio 3.8 (1-3.5); Cholesterol 140 mg/dl (140-200); HDL Cholesterol 37 mg/dl (40-60); Total Protein,Serum 6.8 g/dl (6.3-8.2); Triglycerides 221 mg/dl (30-150); VLDL Cholesterol 44 mg/dL (0-40)
== END 2024-11-03 23:59 | disposition home or self-care (01) ==
LOC: LAB 12:17
PROVIDERS: PCP Nurse Practitioner Family; Visit Provider Internal Medicine Interventional Cardiology
DX: E78.00 Pure hypercholesterolemia, unspecified (principal)
CPT/HCPCS: 36415; 80061; 80076

== ENCOUNTER 2025-05-03 09:02 | Outpatient (CLI) | payer MEDICARE, SELFPAY ==
[2025-05-03 10:09] LABS: Alanine Aminotransferase 19 U/L (12-78); Albumin Level 4.6 g/dl (3.5-5.0); Alkaline Phosphatase 86 U/L (38-126); Aspartate Amino Transferase 31 U/L (17-59); Bilirubin,Direct 0.0 mg/dl (0.0-0.4); Bilirubin,Indirect 3.8 mg/dL (0.0-0.9); Bilirubin,Total 3.8 mg/dl (0.2-1.3); Bilirubin,Unconjugated 3.8 mg/dL (0.0-1.1); Cholesterol 128 mg/dl (140-200); HDL Cholesterol 39 mg/dl (40-60); Total Protein,Serum 7.3 g/dl (6.3-8.2); Triglycerides 112 mg/dl (30-150)
[2025-05-03 11:13] LABS: C-Reactive Protein 1.2 mg/L (0-4)
== END 2025-05-03 23:59 | disposition home or self-care (01) ==
LOC: LAB 09:03
PROVIDERS: PCP Nurse Practitioner Family; Visit Provider Internal Medicine Interventional Cardiology
DX: E78.00 Pure hypercholesterolemia, unspecified (principal)
CPT/HCPCS: 36415; 80061; 80076; 83695; 86140